=== PATIENT | male | born 1945 | race Caucasian/White ===

== ENCOUNTER 2021-06-10 05:57 | Observation (INO) | payer OTHER ==
--- NOTE | 2021-06-10 06:07 | EDM.PDOC ---
ED HPI GENERAL MEDICAL PROBLEM - General Chief Complaint: Lower Extremity Injury/Pain Stated Complaint: L hip pain Time Seen by Provider: 06/10/21 06:06 Source of Information: Reports: Patient History Limitations: Reports: No Limitations - History of Present Illness INITIAL COMMENTS - FREE TEXT/NARRATIVE: Patient comes the emergency department today by ambulance from the basic care center at the [facility] with concerns of a fall and left hip pain. This patient has a history of alcohol dependence abdominal aortic aneurysm without rupture a simple control hypertension hyperlipidemia hypothyroidism generalized anxiety disorder recurrent major depressive disorder. Last night approximately 10:00 the patient felt lightheaded and fell to the ground. He did not hit his head. He had no loss of consciousness. He has no head neck or back pain. He had no chest pain no shortness of breath or difficulty breathing. No generalized weakness. No palpitations. Or syncope. He just felt lightheaded and fell to the ground landing on his left hip. He relates that he laid on the ground most of the night as he was unable to get up due to the severe pain in his left hip. He has had no recent fever or chills. Nausea or vomiting no. No hematuria dysuria urinary frequency. No black or tarry stools. - Related Data Allergies Allergy/AdvReac Type Severity Reaction Status Date / Time No Known Allergies Allergy Verified 06/10/21 06:01 Home Meds: Home Meds Acetaminophen [Tylenol Extra Strength] 500 mg PO ASDIRECTED 06/10/21 [History] Aspirin [Aspirin EC] 81 mg PO DAILY 06/10/21 [History] Ibuprofen 200 mg PO ASDIRECTED 06/10/21 [History] Levothyroxine [Synthroid] 50 mcg PO ACBREAKFAST 06/10/21 [History] Metoprolol Succinate [Toprol XL] 25 mg PO DAILY 06/10/21 [History] busPIRone [Buspar] 20 mg PO DAILY 06/10/21 [History] Review of Systems - Review of Systems Review Of Systems: Comprehensive ROS is negative, except as noted in HPI. ED EXAM, GENERAL - Physical Exam Exam: See Below Exam Limited By: No Limitations General Appearance: Alert, WD/WN, Mild Distress, Thin, Cachetic Eye Exam: Bilateral Eye: EOMI, PERRL Ears: Normal External Exam. No: Normal Canal (Bilateral canals occluded with cerumen) Nose: Normal Inspection Throat/Mouth: No: Normal Inspection ([place] is exquisitely dry.) Head: Atraumatic, Normocephalic Neck: Normal Inspection, Supple, Non-Tender. No: Tender Lateral, Tender Midline Respiratory/Chest: No Respiratory Distress, No Accessory Muscle Use, Chest Non- Tender, Wheezing (His lung sounds are otherwise clear other than a faint expiratory wheezing on the right.) Cardiovascular: Normal Peripheral Pulses, Irregularly Irregular Peripheral Pulses: 2+: Radial (L), Radial (R), Posterior Tibial (L), Posterior Tibial (R), Dorsalis Pedis (L), Dorsalis Pedis (R) GI/Abdominal: Normal Bowel Sounds, Other (The patient does have a noted bladder fullness and tenderness concerning for urinary retention. We will bladder scan.) (Male) Exam: Deferred Rectal (Males) Exam: Deferred Back Exam: Normal Inspection, Full Range of Motion. No: Paraspinal Tenderness, Vertebral Tenderness Extremities: No: Normal Inspection (He has tenderness to the left greater trochanter. There is no overt bony deformity. His left lower extremity is not shortened or externally rotated. CMS is intact appropriately to the left lower extremity. Right lower extremity is unremarkable. Pelvis is stable.) Neurological: Alert, Oriented, Normal Cognition, No Motor/Sensory Deficits Psychiatric: Normal Affect, Normal Mood Skin Exam: Warm, Dry, Intact, Normal Color, No Rash Lymphatic: No Adenopathy Course - Vital Signs Last Recorded V/S: Last Vital Signs Temp 97.3 F 06/10/21 06:03 Pulse 69 06/10/21 08:30 Resp 16 06/10/21 08:30 BP 136/78 06/10/21 08:30 Pulse Ox 94 L 06/10/21 08:30 - Orders/Labs/Meds Orders: Active Orders 24 hr Category Date Time Status Hadley Catheter Insertion [Insert Urinary Catheter] [OM. Care 06/10/21 09:15 Ordered PC] Q24H Peripheral IV Care [RC] . DIRECTED Care 06/10/21 06:06 Active Urinary Catheter Assessment [RC] ASDIRECTED Care 06/10/21 09:05 Active Chest 1V Frontal [CR] Stat Exams 06/10/21 06:05 Taken Head wo Cont [CT] Stat Exams 06/10/21 06:05 Taken Hip Min 2V or 3V w Pelvis Lt [CR] Stat Exams 06/10/21 06:06 Taken PROCALCITONIN [REF] Stat Lab 06/10/21 06:22 Received Sodium Chloride 0.9% [Saline Flush] Med 06/10/21 06:05 Active 10 ml FLUSH ASDIRECTED PRN Peripheral IV Insertion Adult [OM.PC] Stat Oth 06/10/21 06:05 Ordered Medication Orders Sodium Chloride (Sodium Chloride 0.9% 10 Ml Syringe) 10 ml FLUSH ASDIRECTED PRN PRN Reason: Keep Vein Open Last Admin: 06/10/21 07:55 Dose: 10 ml Documented by: MYNOR Labs: Laboratory Tests 06/10/21 06/10/21 06/10/21 Range/Units 06:22 06:22 06:22 WBC 12.8 H (4.0-10.2) K/uL RBC 4.19 L (4.33-5.41) M/uL Hgb 13.2 (13.1-16.8) g/dL Hct 40.4 (39.0-49.0) % MCV 96.4 (84.0-98.0) fL MCH 31.5 (28.2-33.3) pg MCHC 32.7 (31.7-36.0) g/dL RDW 13.5 (11.2-14.1) % Plt Count 224 (150-350) K/uL Neut % (Auto) 88.0 H (45.0-80.0) % Lymph % (Auto) 4.1 L (10.0-50.0) % [place] % (Auto) 7.7 (2.0-14.0) % Eos % (Auto) 0.1 (0.0-5.0) % Baso % (Auto) 0.1 (0.0-2.0) % Neut # (Auto) 11.30 H (1.40-7.00) K/uL Lymph # (Auto) 0.52 (0.50-3.50) K/uL [place] # (Auto) 0.99 (0.00-1.00) K/uL Eos # (Auto) 0.01 (0.00-0.50) K/uL Baso # (Auto) 0.01 (0.00-0.20) K/uL PT 10.2 (9.5-12.0) SEC INR 1.0 APTT 27.8 (24.5-32.8) SEC Sodium 142 (136-145) mmol/L Potassium 4.5 (3.5-5.1) mmol/L Chloride 106 (98-107) mmol/L Carbon Dioxide 26.1 (21.0-32.0) mmol/L Anion Gap 9.9 (7-15) meq/L BUN 27 H (7-18) mg/dL Creatinine 1.32 H (0.51-1.17) mg/dL Est Cr Clr Drug Dosing TNP Estimated GFR (MDRD) 53 mL/min Glucose 168 H (70-99) mg/dL Lactic Acid (0.4-2.0) mmol/L Calcium 9.3 (8.5-10.1) mg/dL Total Bilirubin 0.4 (0.2-1.0) mg/dL AST 23 (15-37) U/L ALT 25 (12-78) U/L Alkaline Phosphatase 84 (46-116) IU/L Creatine Kinase 498 H (26-308) U/L Troponin I High Sens 17 (<=76) ng/L C-Reactive Protein 0.6 (<=0.9) mg/dL Total Protein 6.8 (6.4-8.2) g/dL Albumin 3.9 (3.4-5.0) g/dL Specimen Type Urine Color Urine Appearance Urine pH (5.0-9.0) Ur Specific [place] (1.005-1.030) Urine Protein (NEGATIVE) mg/dL Urine Glucose (UA) (NEGATIVE) mg/dL Urine Ketones (NEGATIVE) mg/dL Urine Occult Blood (NEGATIVE) Urine Nitrite (NEGATIVE) Urine Bilirubin (NEGATIVE) Urine Urobilinogen (0.2-1.0) E.U./dL Ur Leukocyte Esterase (NEGATIVE) Urine RBC /HPF Urine WBC /HPF Ur Epithelial Cells /LPF 06/10/21 06/10/21 Range/Units 06:22 09:35 WBC (4.0-10.2) K/uL RBC (4.33-5.41) M/uL Hgb (13.1-16.8) g/dL Hct (39.0-49.0) % MCV (84.0-98.0) fL MCH (28.2-33.3) pg MCHC (31.7-36.0) g/dL RDW (11.2-14.1) % Plt Count (150-350) K/uL Neut % (Auto) (45.0-80.0) % Lymph % (Auto) (10.0-50.0) % [place] % (Auto) (2.0-14.0) % Eos % (Auto) (0.0-5.0) % Baso % (Auto) (0.0-2.0) % Neut # (Auto) (1.40-7.00) K/uL Lymph # (Auto) (0.50-3.50) K/uL [place] # (Auto) (0.00-1.00) K/uL Eos # (Auto) (0.00-0.50) K/uL Baso # (Auto) (0.00-0.20) K/uL PT (9.5-12.0) SEC INR APTT (24.5-32.8) SEC Sodium (136-145) mmol/L Potassium (3.5-5.1) mmol/L Chloride (98-107) mmol/L Carbon Dioxide (21.0-32.0) mmol/L Anion Gap (7-15) meq/L BUN (7-18) mg/dL Creatinine (0.51-1.17) mg/dL Est Cr Clr Drug Dosing Estimated GFR (MDRD) mL/min Glucose (70-99) mg/dL Lactic Acid 1.5 (0.4-2.0) mmol/L Calcium (8.5-10.1) mg/dL Total Bilirubin (0.2-1.0) mg/dL AST (15-37) U/L ALT (12-78) U/L Alkaline Phosphatase (46-116) IU/L Creatine Kinase (26-308) U/L Troponin I High Sens (<=76) ng/L C-Reactive Protein (<=0.9) mg/dL Total Protein (6.4-8.2) g/dL Albumin (3.4-5.0) g/dL Specimen Type Urinvoid Urine Color Yellow Urine Appearance Clear Urine pH 7.0 (5.0-9.0) Ur Specific [place] 1.020 (1.005-1.030) Urine Protein Negative (NEGATIVE) mg/dL Urine Glucose (UA) Negative (NEGATIVE) mg/dL Urine Ketones Negative (NEGATIVE) mg/dL Urine Occult Blood Trace-intact H (NEGATIVE) Urine Nitrite Negative (NEGATIVE) Urine Bilirubin Negative (NEGATIVE) Urine Urobilinogen 0.2 (0.2-1.0) E.U./dL Ur Leukocyte Esterase Negative (NEGATIVE) Urine RBC 0-5 /HPF Urine WBC 0-5 /HPF Ur Epithelial Cells Occasional /LPF Meds: Medications Generic Name Dose Route Start Last Admin Trade Name Freq PRN Reason Stop Dose Admin Sodium Chloride 10 ml 06/10/21 06:05 06/10/21 07:55 Sodium Chloride 0.9% 10 Ml Syringe FLUSH 10 ml ASDIRECTED PRN Administration Keep Vein Open Discontinued Medications Generic Name Dose Route Start Last Admin Trade Name Freq PRN Reason Stop Dose Admin Hydromorphone HCl 0.5 mg 06/10/21 06:40 06/10/21 07:10 Hydromorphone 0.5 Mg/0.5 Ml Syringe IVPUSH 06/10/21 06:41 0.5 mg ONETIME ONE Administration Hydromorphone HCl 0.5 mg 06/10/21 07:39 06/10/21 07:54 Hydromorphone 0.5 Mg/0.5 Ml Syringe IV 06/10/21 07:40 0.5 mg ONETIME ONE Administration Lidocaine HCl 11 ml 06/10/21 09:09 06/10/21 09:24 Lidocaine 2% Hcl 11 Ml Jelly Filled Syringe TOP 06/10/21 09:10 11 ml ONETIME ONE Administration Ondansetron HCl 4 mg 06/10/21 06:40 06/10/21 07:10 Ondansetron 4 Mg/2 Ml Sdv IV 06/10/21 06:41 4 mg ONETIME ONE Administration - Radiology Interpretation Free Text/Narrative:: X-ray of the left hip initially reviewed extemporaneously by myself. I do not identify any pelvis fracture. He has a left femoral neck impacted nondisplaced fracture. Radiological review to follow. - Re-Assessments/Exams Free Text/Narrative Re-Assessment/Exam: 06/10/21 07:27 IV was established labs are drawn. Dilaudid for pain Zofran for prophylactic nausea. EKG shows atrial fibrillation which appears to be a new onset for him. I do not see any documentation of this in his chart previously. He is in a controlled rate at 74. Question marked ST abnormality possible inferior subendocardial injury. There is no EKG in our system and I do not identify any EKGs in the [facility] system which is his primary care. Patient had greater than 1000 and his bladder by bladder ultrasound. Hadley ca theter was placed. Approximately 2 L was drained. Urinalysis pending. He has no history of urinary retention. He clearly has a femoral necks impacted fracture. He has a new onset atrial fibrillation. With a controlled rate. Unknown time of initiation. He will need anticoagulation we will place him on Lovenox as he will have surgery in the near future. Laboratory evaluation with a mild elevation of his creatinine of 1.32 with a BUN of 27 which could be related to his outlet obstruction. This will most likely improve following drainage of his bladder. His CPK is mildly elevated at 498 which is good as he laid on the floor most of the night. His urinalysis is unremarkable other than a trace amount of blood. Which is most likely due to his small elevation of his CPK. We are unable to find a hospital bed for him to be transferred to at this time for his hip to be repaired. We will place him in observation until we can find placement. Comfortable with this plan and his questions were answered. Departure - Departure Time of Disposition: 10:01 Disposition: Refer to Observation Clinical Impression: Fracture of neck of femur, hip, New onset a-fib, Acute urinary retention, Acute kidney injury - Discharge Information Sepsis Event Note (ED) - Focused Exam Vital Signs: Vital Signs Temp Pulse Resp BP Pulse Ox 06/10/21 08:30 69 16 136/78 94 L 06/10/21 07:59 69 15 134/77 92 L 06/10/21 06:03 97.3 F 75 20 169/85 H 97 - Problem List & Annotations (1) Tobacco use disorder SNOMED Code(s): 946741798 Code(s): F17.200 - NICOTINE DEPENDENCE, UNSPECIFIED, UNCOMPLICATED Status: Acute Current Visit: Yes (2) Abdominal aortic aneurysm SNOMED Code(s): 909567916 Code(s): I71.4 - ABDOMINAL AORTIC ANEURYSM, WITHOUT RUPTURE Status: Acute Current Visit: Yes (3) Hypothyroidism SNOMED Code(s): 52225880 Code(s): E03.9 - HYPOTHYROIDISM, UNSPECIFIED Status: Acute Current Visit: Yes (4) Generalized anxiety disorder SNOMED Code(s): 61601781 Code(s): F41.1 - GENERALIZED ANXIETY DISORDER Status: Acute Current Visit: Yes (5) Recurrent major depressive disorder SNOMED Code(s): 50828333 Code(s): F33.9 - MAJOR DEPRESSIVE DISORDER, RECURRENT, UNSPECIFIED Status: Acute Current Visit: Yes (6) Acute kidney injury SNOMED Code(s): 40812812, 51656687 Code(s): N17.9 - ACUTE KIDNEY FAILURE, UNSPECIFIED Status: Acute Current Visit: Yes (7) Acute urinary retention SNOMED Code(s): 993390356 Code(s): R33.8 - OTHER RETENTION OF URINE Status: Acute Current Visit: Yes (8) Fracture of neck of femur, hip SNOMED Code(s): 1306444 Code(s): S72.009A - FRACTURE OF UNSP PART OF NECK OF UNSP FEMUR, INIT Status: Acute Current Visit: Yes (9) New onset a-fib SNOMED Code(s): 48663959 Code(s): I48.91 - UNSPECIFIED ATRIAL FIBRILLATION Status: Acute Current Visit: Yes - Problem List Review Problem List Initiated/Reviewed/Updated: Yes - My Orders Last 24 Hours: My Active Orders 06/10/21 06:05 Chest 1V Frontal [CR] Stat Head wo Cont [CT] Stat Sodium Chloride 0.9% [Saline Flush] 10 ml FLUSH ASDIRECTED PRN Peripheral IV Insertion Adult [OM.PC] Stat 06/10/21 06:06 Peripheral IV Care [RC] . DIRECTED Hip Min 2V or 3V w Pelvis Lt [CR] Stat 06/10/21 06:22 PROCALCITONIN [REF] Stat 06/10/21 09:05 Urinary Catheter Assessment [RC] ASDIRECTED 06/10/21 09:15 Hadley Catheter Insertion [Insert Urinary Catheter] [OM.PC] Q24H - Assessment/Plan Last 24 Hours: My Active Orders 06/10/21 06:05 Chest 1V Frontal [CR] Stat Head wo Cont [CT] Stat Sodium Chloride 0.9% [Saline Flush] 10 ml FLUSH ASDIRECTED PRN Peripheral IV Insertion Adult [OM.PC] Stat 06/10/21 06:06 Peripheral IV Care [RC] . DIRECTED Hip Min 2V or 3V w Pelvis Lt [CR] Stat 06/10/21 06:22 PROCALCITONIN [REF] Stat 06/10/21 09:05 Urinary Catheter Assessment [RC] ASDIRECTED 06/10/21 09:15 Hadley Catheter Insertion [Insert Urinary Catheter] [OM.PC] Q24H Assessment:: Assessment/plan. Left femoral neck impacted fracture. Acute. Status post fall at home. Due to lightheadedness most likely due to #2. Bedrest. Waiting on bed placement Pain control. Assistance with ADLs. New onset atrial fibrillation with controlled ventricular rate. Unknown time of onset. No need for beta-blockers at this time. Telemetry. We will use Lovenox twice daily for anticoagulation as he is going to most likely need surgery in the near future. Acute kidney injury. Most likely due to poor oral intake over overnight from laying on the ground. Baseline creatinine 1.07, creatinine today 1.32. Gentle hydration with IV fluids. This could also be an aspect of outlet obstruction. See #3. Repeat labs in the morning. Acute urinary retention. New onset. Greater than 2 L in the emergency department after Hadley catheter placed. No history of BPH. This could be an aspect of his acute kidney injury due to outlet obstruction. Chronic diagnosis Hypothyroidism Continue levothyroxine. Major depressive disorder generalized anxiety disorder. Continue home medication clonazepam duloxetine and BuSpar. Abdominal aortic aneurysm. Without rupture. Monitor blood pressure closely. Nicotine dependence. Habitrol patch. VTE: Lovenox 60mg Subcut bid for prophylaxis A Fib. TEDs. Sepsis: No signs of infection at this time. Continue to monitor. Code Status. Full Code. We are unable to transfer him at this time due to bed status. [facility]. [facility] has [facility] contacted to help look for a bed. I am unsure of the time that we will be able to get this patient to a tertiary care center for his hip fracture with his co-morbidities. I do not believe that he is a candidate for [facility] to repair his hip with his co-morbidities. I do not want to start Coumadin or DOACs as the patient will need surgery in the near future and Lovenox would be more appropriate. The patient care has been given to Dr. Singh for observation and disposition.
[2021-06-10] MEDS ORDERED: HYDROmorphone 0.5 MG/0.5 ML Syringe IVPUSH ONE (06:40)
[2021-06-10] MEDS ORDERED: Ondansetron 4 MG/2 ML SDV IV ONE (06:40)
[2021-06-10 07:29] LABS: PTT,PARTIAL THROMBOPLSTIN TIME 27.8 SEC (24.5-32.8)
--- NOTE | 2021-06-10 07:35 | PCM.EKG ---
#1 Interpretation EKG Date: 06/10/21 Time: 07:04 Rhythm: A-Fib Rate (Beats/Min): 74 [place]: Normal P-Wave: Absent QRS: Normal ST-T: Depressed (? depression, per EKG marked ST abnormality, possible inferior endocardial injury,.) QT: Normal Comparison: NA - No Prior EKG
[2021-06-10] MEDS ORDERED: HYDROmorphone 0.5 MG/0.5 ML Syringe IV ONE (07:39)
[2021-06-10] MEDS: Sodium Chloride 0.9% 10 ML Syringe FLUSH PRN ×3 (07:55→13:38)
[2021-06-10 08:01] LABS: ANION GAP 9.9 meq/L (7-15); CHLORIDE,CL 106 mmol/L (98-107); SODIUM,NA 142 mmol/L (136-145)
[2021-06-10] MEDS ORDERED: Lidocaine 2% HCl 11 ML Jelly Filled Syringe TOP ONE (09:09)
[2021-06-10] MEDS: HYDROmorphone 0.5 MG/0.5 ML Syringe IVPUSH PRN ×4 (11:50→19:57)
[2021-06-10] MEDS: Enoxaparin 60 MG/0.6 ML Syringe SUBCUT SCH (11:50)
[2021-06-10] MEDS: Dextrose 5%-0.9% NaCl 1,000 ML IV SCH (13:38)
[2021-06-10] MEDS: Ondansetron 4 MG/2 ML SDV IVPUSH PRN (20:00)
[2021-06-10] MEDS: traMADol 50 MG Tab PO SCH (22:15)
[2021-06-11] MEDS: HYDROmorphone 0.5 MG/0.5 ML Syringe IVPUSH PRN ×7 (00:14→13:30)
[2021-06-11] MEDS: Dextrose 5%-0.9% NaCl 1,000 ML IV SCH ×2 (01:29→13:34)
[2021-06-11] MEDS: traMADol 50 MG Tab PO SCH ×3 (04:23→18:26)
[2021-06-11] MEDS ORDERED: Levothyroxine 50 MCG Tab PO SCH (07:30)
[2021-06-11] MEDS: Ondansetron 4 MG/2 ML SDV IVPUSH PRN (07:36)
[2021-06-11] MEDS: Sodium Chloride 0.9% 10 ML Syringe FLUSH PRN ×4 (07:41→13:30)
[2021-06-11] MEDS ORDERED: busPIRone 15 MG Tab PO SCH (08:00)
[2021-06-11] MEDS ORDERED: Metoprolol Succinate 25 MG Tab.ER PO SCH (08:00)
[2021-06-11 08:30] LABS: ANION GAP 6.1 meq/L (7-15); CHLORIDE,CL 107 mmol/L (98-107); SODIUM,NA 141 mmol/L (136-145)
[2021-06-11] MEDS: Enoxaparin 60 MG/0.6 ML Syringe SUBCUT SCH (10:11)
--- NOTE | 2021-06-11 14:07 | PCM.DCSUM1 ---
Discharge Summary - Hospital Course Brief History: Patient admitted observation due to acute left femoral neck fracture while waiting for a bed to open up at higher level of care that provides surgical Ortho coverage. Incidental new onset Afib noted. Diagnosis: Stroke: No - Discharge Data Discharge Date: 06/11/21 Discharge Disposition: DC/Tfer to Acute Hospital 02 Condition: Good - Referral to Home Health Primary Care Physician: JUAN JOSE Arrieta - Discharge Diagnosis/Problem(s) (1) Fracture of neck of femur, hip SNOMED Code(s): 7489615 ICD Code: S72.009A - FRACTURE OF UNSP PART OF NECK OF UNSP FEMUR, INIT Status: Acute Priority: High Current Visit: Yes Problem Details: Acute left sided fracture secondary to fall. Admitted observation for pain control overnight while waiting for bed placement in [place] for Ortho eval/surgical repair. (2) New onset a-fib SNOMED Code(s): 15776893 ICD Code: I48.91 - UNSPECIFIED ATRIAL FIBRILLATION Status: Acute Priority: Medium Current Visit: Yes Problem Details: No history of previous Afib. Will need echo which can be performed at [facility]. Not started on routine anticoaguation due to pending hip fracture surgery. Further therapy to be determined at [facility]. Brief run of V-tach noted on cafeteria monitor/asymptomatic. No further episodes noted. (3) Abdominal aortic aneurysm SNOMED Code(s): 592283550 ICD Code: I71.4 - ABDOMINAL AORTIC ANEURYSM, WITHOUT RUPTURE Status: Chronic Priority: Low Current Visit: No Problem Details: Chronic. No acute changes/new pain complaints. Qualifiers: Presence of rupture: without rupture Qualified Code(s): I71.4 - Abdominal aortic aneurysm, without rupture (4) Acute urinary retention SNOMED Code(s): 901325218 ICD Code: R33.8 - OTHER RETENTION OF URINE Status: Acute Priority: High Current Visit: Yes Problem Details: Over 2000 ml obtained from bladder after garcia placement. No history of previous similar problem. UA clear. (5) Generalized anxiety disorder SNOMED Code(s): 74087102 ICD Code: F41.1 - GENERALIZED ANXIETY DISORDER Status: Chronic Priority: Low Current Visit: No Problem Details: stable per history. Continue home meds. (6) Hyperlipidemia SNOMED Code(s): 36786923 ICD Code: E78.5 - HYPERLIPIDEMIA, UNSPECIFIED Status: Acute Priority: Low Current Visit: No Problem Details: Currently not being treated by medication Qualifiers: Hyperlipidemia type: unspecified Qualified Code(s): E78.5 - Hyperlipidemia, unspecified (7) Hypothyroidism SNOMED Code(s): 52747928 ICD Code: E03.9 - HYPOTHYROIDISM, UNSPECIFIED Status: Acute Priority: Low Current Visit: No Problem Details: Continue home medication Qualifiers: Hypothyroidism type: unspecified Qualified Code(s): E03.9 - Hypothyroidism, unspecified - Patient Summary/Data Hospital Course: Unremarkable overnight stay. Dilaudid IV and Tramadol PO for pain. Garcia placed as noted above. Vital signs stable. Patient has not eaten today/has remained NPO other than sips water. Brief isolated 5-10 sec run of VTach noted on monitor today. Accepted for transfer by [facility] today by /hospitalist. Received bed confirmation at 1345. - Discharge Plan Home Medications: Home Meds Acetaminophen [Tylenol Extra Strength] 500 mg PO ASDIRECTED 06/10/21 [History] Aspirin [Aspirin EC] 81 mg PO DAILY 06/10/21 [History] Ibuprofen 200 mg PO ASDIRECTED 06/10/21 [History] Levothyroxine [Synthroid] 50 mcg PO ACBREAKFAST 06/10/21 [History] Metoprolol Succinate [Toprol XL] 25 mg PO DAILY 06/10/21 [History] busPIRone [Buspar] 20 mg PO DAILY 06/10/21 [History] Forms: ED Department Discharge Referrals: Kate Lopez PA [Primary Care Provider] - - Discharge Summary/Plan Comment DC Time >30 min.: No Total # of Minutes for Discharge Time: 30 - General Info Date of Service: 06/11/21 Admission Dx/Problem (Free Text: left hip fracture Subjective Update: patient complains of left hip pain, no acute changes overnight. Functional Status: Reports: Pain Controlled (improves with dilaudid/tramadol but never completely goes away) - Review of Systems General: Reports: Appetite (poor). Denies: Fever, Weakness, Chills, Night Sweats HEENT: Reports: Other (no acute changes) Pulmonary: Denies: Shortness of Breath, Pleuritic Chest Pain, Cough, Sputum, Hemoptysis, Wheezing Cardiovascular: Denies: Chest Pain Gastrointestinal: Reports: Decreased Appetite. Denies: Abdominal Pain, Constipation, Diarrhea, Melena, Nausea, Vomiting Genitourinary: Reports: Retention. Denies: Dysuria, Frequency, Burning, Flank Pain Musculoskeletal: Reports: Other (acute left hip pain) Skin: Reports: Other (no acute changes) Neurological: Reports: Other (no acute changes) - Patient Data Vitals - Most Recent: Last Vital Signs Temp 37.2 C 06/11/21 11:01 Pulse 95 06/11/21 11:01 Resp 16 06/11/21 11:01 BP 98/63 06/11/21 11:01 Pulse Ox 91 L 06/11/21 11:01 Weight - Most Recent: 65.771 kg I&O - Last 24 hours: Intake & Output 06/10/21 06/11/21 06/11/21 22:59 06:59 14:59 Intake Total 456 Output Total 575 Balance -119 Lab Results - Last 24 hrs: Laboratory Results - last 24 hr 06/10/21 06/11/21 06/11/21 Range/Units 06:22 07:35 07:40 WBC 8.5 (4.0-10.2) K/uL RBC 3.92 L (4.33-5.41) M/uL Hgb 12.3 L (13.1-16.8) g/dL Hct 39.0 (39.0-49.0) % MCV 99.5 H D (84.0-98.0) fL MCH 31.4 (28.2-33.3) pg MCHC 31.5 L (31.7-36.0) g/dL RDW 13.8 (11.2-14.1) % Plt Count 160 (150-350) K/uL Neut % (Auto) 79.9 (45.0-80.0) % Lymph % (Auto) 9.6 L (10.0-50.0) % [place] % (Auto) 8.9 (2.0-14.0) % Eos % (Auto) 1.5 (0.0-5.0) % Baso % (Auto) 0.1 (0.0-2.0) % Neut # (Auto) 6.82 (1.40-7.00) K/uL Lymph # (Auto) 0.82 (0.50-3.50) K/uL [place] # (Auto) 0.76 (0.00-1.00) K/uL Eos # (Auto) 0.13 (0.00-0.50) K/uL Baso # (Auto) 0.01 (0.00-0.20) K/uL Sodium 141 (136-145) mmol/L Potassium 3.8 (3.5-5.1) mmol/L Chloride 107 (98-107) mmol/L Carbon Dioxide 27.9 (21.0-32.0) mmol/L Anion Gap 6.1 L (7-15) meq/L BUN 21 H (7-18) mg/dL Creatinine 1.00 (0.51-1.17) mg/dL Est Cr Clr Drug Dosing 59.38 mL/min Estimated GFR (MDRD) > 60 mL/min Glucose 111 H (70-99) mg/dL Calcium 8.1 L (8.5-10.1) mg/dL Total Bilirubin 0.3 (0.2-1.0) mg/dL AST 23 (15-37) U/L ALT 20 (12-78) U/L Alkaline Phosphatase 67 (46-116) IU/L Total Protein 5.5 L (6.4-8.2) g/dL Albumin 2.8 L (3.4-5.0) g/dL Procalcitonin 0.15 H ng/mL SARS-CoV-2 Ag (Rapid) (NEGATIVE) 06/11/21 Range/Units 10:02 WBC (4.0-10.2) K/uL RBC (4.33-5.41) M/uL Hgb (13.1-16.8) g/dL Hct (39.0-49.0) % MCV (84.0-98.0) fL MCH (28.2-33.3) pg MCHC (31.7-36.0) g/dL RDW (11.2-14.1) % Plt Count (150-350) K/uL Neut % (Auto) (45.0-80.0) % Lymph % (Auto) (10.0-50.0) % [place] % (Auto) (2.0-14.0) % Eos % (Auto) (0.0-5.0) % Baso % (Auto) (0.0-2.0) % Neut # (Auto) (1.40-7.00) K/uL Lymph # (Auto) (0.50-3.50) K/uL [place] # (Auto) (0.00-1.00) K/uL Eos # (Auto) (0.00-0.50) K/uL Baso # (Auto) (0.00-0.20) K/uL Sodium (136-145) mmol/L Potassium (3.5-5.1) mmol/L Chloride (98-107) mmol/L Carbon Dioxide (21.0-32.0) mmol/L Anion Gap (7-15) meq/L BUN (7-18) mg/dL Creatinine (0.51-1.17) mg/dL Est Cr Clr Drug Dosing mL/min Estimated GFR (MDRD) mL/min Glucose (70-99) mg/dL Calcium (8.5-10.1) mg/dL Total Bilirubin (0.2-1.0) mg/dL AST (15-37) U/L ALT (12-78) U/L Alkaline Phosphatase (46-116) IU/L Total Protein (6.4-8.2) g/dL Albumin (3.4-5.0) g/dL Procalcitonin ng/mL SARS-CoV-2 Ag (Rapid) Negative (NEGATIVE) Med Orders - Current: Current Medications Buspirone HCl (Buspirone 15 Mg Tab) 20 mg PO DAILY [facility] Last Admin: 06/11/21 07:42 Dose: 20 mg Documented by: Enoxaparin Sodium (Enoxaparin 60 Mg/0.6 Ml Syringe) 60 mg SUBCUT DAILY [facility] Last Admin: 06/11/21 10:11 Dose: Not Given Documented by: Hydromorphone HCl (Hydromorphone 0.5 Mg/0.5 Ml Syringe) 0.5 mg IVPUSH Q1H PRN PRN Reason: Pain Last Admin: 06/11/21 13:30 Dose: 0.5 mg Documented by: Dextrose/Sodium Chloride (Dextrose 5%-Normal Saline) 1,000 mls @ 100 mls/hr IV ASDIRECTED [facility] Last Admin: 06/11/21 13:34 Dose: 100 mls/hr Documented by: Influenza Virus Vaccine (Pharmacy To Dose - Influenza Vaccine) 1 each IM ONETIME ONE Stop: 06/10/21 14:18 Levothyroxine Sodium (Levothyroxine 50 Mcg Tab) 50 mcg PO ACBREAKFAST [facility] Last Admin: 06/11/21 07:41 Dose: 50 mcg Documented by: Metoprolol Succinate (Metoprolol Succinate 25 Mg Tab.Er) 25 mg PO DAILY [facility] Last Admin: 06/11/21 07:42 Dose: 25 mg Documented by: Ondansetron HCl (Ondansetron 4 Mg/2 Ml Sdv) 4 mg IVPUSH Q6H PRN PRN Reason: Nausea/Vomiting Last Admin: 06/11/21 07:36 Dose: 4 mg Documented by: Sodium Chloride (Sodium Chloride 0.9% 10 Ml Syringe) 10 ml FLUSH ASDIRECTED PRN PRN Reason: Keep Vein Open Last Admin: 06/11/21 13:30 Dose: 10 ml Documented by: Tramadol HCl (Tramadol 50 Mg Tab) 50 mg PO Q6H [facility] Last Admin: 06/11/21 10:12 Dose: Not Given Documented by: Discontinued Medications Hydromorphone HCl (Hydromorphone 0.5 Mg/0.5 Ml Syringe) 0.5 mg IVPUSH ONETIME ONE Stop: 06/10/21 06:41 Last Admin: 06/10/21 07:10 Dose: 0.5 mg Documented by: Hydromorphone HCl (Hydromorphone 0.5 Mg/0.5 Ml Syringe) 0.5 mg IV ONETIME ONE Stop: 06/10/21 07:40 Last Admin: 06/10/21 07:54 Dose: 0.5 mg Documented by: Lidocaine HCl (Lidocaine 2% Hcl 11 Ml Jelly Filled Syringe) 11 ml TOP ONETIME ONE Stop: 06/10/21 09:10 Last Admin: 06/10/21 09:24 Dose: 11 ml Documented by: Ondansetron HCl (Ondansetron 4 Mg/2 Ml Sdv) 4 mg IV ONETIME ONE Stop: 06/10/21 06:41 Last Admin: 06/10/21 07:10 Dose: 4 mg Documented by: - Exam Quality Assessment: Reports: Supplemental Oxygen General: Reports: Alert HEENT: Reports: Pupils Equal, Pupils Reactive, EOMI, Mucous Membr. Moist/[place] Neck: Reports: Supple Lungs: Reports: Normal Respiratory Effort, Decreased Breath Sounds (throughout), Rhonchi (mild, right upper lung). Denies: Rales, Stridor, Wheezing Cardiovascular: Reports: Irregular Rhythm. Denies: Murmurs GI/Abdominal Exam: Soft, Non-Tender (Male) Exam: Deferred Rectal (Males) Exam: Deferred Back Exam: Denies: Muscle Spasm Extremities: Normal Capillary Refill, Other (right hip pain) Neurological: Reports: No New Focal Deficit Psy/Mental Status: Reports: Alert, Normal Affect, Normal Mood
== END 2021-06-11 14:22 ==
LOC: LL.ED 05:57 → LL.MS 09:44
PROVIDERS: ADMIT Emergency Medicine; ATTEND Emergency Medicine
DX: S72.002A Fracture of unspecified part of neck of left femur, initial encounter for closed fracture (principal); I10 Essential (primary) hypertension; E78.5 Hyperlipidemia, unspecified; E03.9 Hypothyroidism, unspecified; F41.1 Generalized anxiety disorder; I71.4 Abdominal aortic aneurysm, without rupture; F17.200 Nicotine dependence, unspecified, uncomplicated; N17.9 Acute kidney failure, unspecified; F33.9 Major depressive disorder, recurrent, unspecified; I48.91 Unspecified atrial fibrillation; R33.9 Retention of urine, unspecified; Z20.822 Contact with and (suspected) exposure to COVID-19; Z79.899 Other long term (current) drug therapy; Z79.82 Long term (current) use of aspirin; Z79.890 Hormone replacement therapy
CPT/HCPCS: 36415; 51702; 70450; 71045; 80053; 81001; 82550; 83605; 84145; 84484; 85025; 85610; 85730; 86140; 87426; 93005; 93010; 96372; 96374; 96375; 96376; 99217; 99220; 99285-25; A9270-GY; G0378; J1170; J1650; J2405; J7042

== ENCOUNTER 2021-08-16 13:56 | Emergency (ER) | payer MEDICARE, OTHER ==
[2021-08-16] MEDS ORDERED: Lidocaine 4% Top Soln 50 ML Bottle MUCMEM ONE (14:06)
[2021-08-16] MEDS ORDERED: Lidocaine 2% HCl 11 ML Jelly Filled Syringe TOP ONE (14:10)
--- NOTE | 2021-08-16 16:39 | EDM.PDOC ---
ED HPI GENERAL MEDICAL PROBLEM - General Chief Complaint: Genitourinary Problem Stated Complaint: unable to reinsert catheter Time Seen by Provider: 08/16/21 13:58 Source of Information: Reports: Patient, RN History Limitations: Reports: No Limitations - History of Present Illness INITIAL COMMENTS - FREE TEXT/NARRATIVE: Pt. presents to ER from [facility] with complaints that they are unable to pass a garcia catheter. He has problems with urinary retention, and they were unable to pass the new catheter today when they changed it. Staff at [facility] state that they had trouble removing the catheter as well, but were eventually able to remove it. They state that the patient had some bloody urine/clots present when the catheter was removed. Staff is concerned that his urine looks dark in color. Pt. denies any discomfort. No fever or chills. No nausea or vomiting. No abdominal discomfort. Onset: Today Onset Date: 08/16/21 left flank/lower back pain Pain Score (Numeric/FACES): 9 - Related Data Allergies Allergy/AdvReac Type Severity Reaction Status Date / Time No Known Allergies Allergy Verified 08/16/21 14:02 Home Meds: Home Meds Acetaminophen [Tylenol Extra Strength] 500 mg PO TID 06/10/21 [History] Levothyroxine [Synthroid] 50 mcg PO ACBREAKFAST 06/10/21 [History] busPIRone [Buspar] 20 mg PO TID 06/10/21 [History] Apixaban [Eliquis] 5 mg PO BID 08/16/21 [History] Calcium Carb/Magnesium Hydrox [Antacid Extra Strngth Tab Chew] 1 - 2 tab PO ASDIRECTED PRN 08/16/21 [History] Ferrous Sulfate 325 mg PO DAILY 08/16/21 [History] Folic Acid 1 mg PO DAILY 08/16/21 [History] Lidocaine 5% [Lidoderm 5%] 1 patch TOP DAILY 08/16/21 [History] Loperamide HCl [Imodium A-D] 2 - 4 mg PO ASDIRECTED PRN 08/16/21 [History] Metoprolol Succinate 50 mg PO DAILY 08/16/21 [History] Nicotine Polacrilex [Nicotine Lozenge] 2 mg BC ASDIRECTED PRN 08/16/21 [History] Omeprazole 20 mg PO DAILY 08/16/21 [History] Sennosides/Docusate Sodium [Senna-S 8.6-50 mg Tablet] 1 tab PO BID 08/16/21 [History] Sertraline [Zoloft] 50 mg PO DAILY 08/16/21 [History] Tamsulosin HCl 0.4 mg PO DAILY 08/16/21 [History] buPROPion HCL [Bupropion Xl] 300 mg PO DAILY 08/16/21 [History] clonazePAM [Clonazepam] 1 mg PO BID 08/16/21 [History] traMADol [Ultram] 50 mg PO ASDIRECTED PRN 08/16/21 [History] traMADol [Ultram] 50 mg PO TID 08/16/21 [History] Past Medical History HEENT History: Reports: Cataract, Impaired Vision Cardiovascular History: Reports: Afib, Aneurysm, High Cholesterol, Hypertension, Other (See Below) Other Cardiovascular History: new onset afib today 06/10/21, hx of abdominal aortic aneurysm without rupture Respiratory History: Reports: COPD Gastrointestinal History: Reports: Chronic Constipation, GERD Genitourinary History: Reports: BPH, Retention, Urinary, Other (See Below) Other Genitourinary History: hx of cyst on kidney Musculoskeletal History: Reports: Fracture, Other (See Below) Other Musculoskeletal History: fx left femur Psychiatric History: Reports: Addiction, Anxiety, Depression Endocrine/Metabolic History: Reports: Hypothyroidism Hematologic History: Reports: Anemia - Past Surgical History HEENT Surgical History: Reports: Oral Surgery Musculoskeletal Surgical History: Reports: Hip Replacement, Other (See Below) Other Musculoskeletal Surgeries/Procedures:: L STALIN Social & Family History - Caffeine Use Caffeine Use: Reports: Coffee ED ROS GENERAL - Review of Systems Review Of Systems: See Below Constitutional: Reports: No Symptoms HEENT: Reports: No Symptoms Respiratory: Reports: No Symptoms Cardiovascular: Reports: No Symptoms Endocrine: Reports: No Symptoms GI/Abdominal: Reports: No Symptoms : Reports: Hematuria, Urinary Retention, Other (see HPI) Musculoskeletal: Reports: No Symptoms Skin: Reports: No Symptoms Neurological: Reports: No Symptoms Psychiatric: Reports: No Symptoms Hematologic/Lymphatic: Reports: No Symptoms Immunologic: Reports: No Symptoms ED EXAM, GENERAL - Physical Exam Exam: See Below Exam Limited By: No Limitations General Appearance: Alert, WD/WN, No Apparent Distress GI/Abdominal: Soft, Non-Tender, No Distention, No Mass (Male) Exam: Normal Inspection, Circumcised, Other (Several small blood clots flushed from catheter after it was placed.) Rectal (Males) Exam: Deferred Course - Vital Signs Last Recorded V/S: Last Vital Signs Temp 36.9 C 08/16/21 13:58 Pulse 64 08/16/21 13:58 Resp 16 08/16/21 13:58 BP 135/88 08/16/21 13:58 Pulse Ox 96 08/16/21 13:58 - Orders/Labs/Meds Orders: Active Orders 24 hr Category Date Time Status CULTURE URINE [RM] Stat Lab 08/16/21 15:05 Received Labs: Laboratory Tests 08/16/21 Range/Units 15:05 Specimen Type Urincath Urine Color Brown Urine Appearance Turbid Urine pH 6.5 (5.0-9.0) Ur Specific [place] 1.020 (1.005-1.030) Urine Protein 100 H (NEGATIVE) mg/dL Urine Glucose (UA) Negative (NEGATIVE) mg/dL Urine Ketones Trace H (NEGATIVE) mg/dL Urine Occult Blood Large H (NEGATIVE) Urine Nitrite Negative (NEGATIVE) Urine Bilirubin Small H (NEGATIVE) Urine Urobilinogen 1.0 (0.2-1.0) E.U./dL Ur Leukocyte Esterase Trace H (NEGATIVE) Urine RBC >100 H /HPF Urine WBC 5-10 H /HPF Ur Epithelial Cells Rare /LPF Urine Bacteria Few (NONE TO FEW) /HPF Meds: Medications Discontinued Medications Generic Name Dose Route Start Last Admin Trade Name Freq PRN Reason Stop Dose Admin Lidocaine HCl 10 ml 08/16/21 14:06 08/16/21 14:15 Lidocaine 4% Top Soln 50 Ml Bottle MUCMEM 08/16/21 14:07 Not Given ONETIME ONE Lidocaine HCl 11 ml 08/16/21 14:10 08/16/21 14:14 Lidocaine 2% Hcl 11 Ml Jelly Filled Syringe TOP 08/16/21 14:11 11 ml ONETIME ONE Administration - Re-Assessments/Exams Free Text/Narrative Re-Assessment/Exam: Catheter was changed with minimal difficulty per nursing. Glydo lidocaine/[place] combination was used to anesthetize the urethra prior to placement of the catheter. Initially there was minimal urine return. Catheter was flushed with normal saline, and was flowing freely at time of discharge. UA was performed. He had only a trace of leukocyte esterase noted on his UA. He continued to have some small clots in his urine and urine appeared blood tinged. No juliette hematu clotilde noted. Departure - Departure Time of Disposition: 13:15 Disposition: DC/Tfer to [facility] 03 Clinical Impression: Urinary retention, Asymptomatic bacteriuria - Discharge Information Referrals: Kate Lopez PA [Primary Care Provider] - Forms: ED Department Discharge Additional Instructions: Follow-up in clinic as needed. There is a trace of leukocytes in his urine. We will await cultures to see if it needs to be treated. Sepsis Event Note (ED) - Focused Exam Vital Signs: Vital Signs Temp Pulse Resp BP Pulse Ox 08/16/21 13:58 36.9 C 64 16 135/88 96 - Problem List Review Problem List Initiated/Reviewed/Updated: Yes - My Orders Last 24 Hours: My Active Orders 08/16/21 15:05 CULTURE URINE [RM] Stat - Assessment/Plan Last 24 Hours: My Active Orders 08/16/21 15:05 CULTURE URINE [RM] Stat Plan: Pt. was discharged. He was not treated for a UTI as he was asymptomatic. Urine was cultured. Change garcia catheter as directed by PCP/urologist. Return to ER if he develops fever, chills, lightheadedness, weakness, nausea, vomiting, abdominal or back pain.
== END 2021-08-16 16:25 ==
LOC: LL.ED 13:56
DX: N40.1 Benign prostatic hyperplasia with lower urinary tract symptoms (principal); R33.8 Other retention of urine; R82.71 Bacteriuria; I48.91 Unspecified atrial fibrillation; I10 Essential (primary) hypertension; J44.9 Chronic obstructive pulmonary disease, unspecified; K21.9 Gastro-esophageal reflux disease without esophagitis; E03.9 Hypothyroidism, unspecified; D64.9 Anemia, unspecified; Z79.01 Long term (current) use of anticoagulants; Z79.899 Other long term (current) drug therapy
CPT/HCPCS: 51702; 81001; 87086; 87088; 87186; 99283; A9270; 99284

== ENCOUNTER 2021-09-13 22:53 | Emergency (ER) | payer OTHER ==
[2021-09-13] MEDS: Lidocaine 2% HCl 11 ML Jelly Filled Syringe ONE (23:00)
== END 2021-09-13 23:55 | disposition home or self-care (01) ==
LOC: LL.ED 22:53
DX: T83.83XA Hemorrhage due to genitourinary prosthetic devices, implants and grafts, initial encounter (principal); I48.91 Unspecified atrial fibrillation; I10 Essential (primary) hypertension; J44.9 Chronic obstructive pulmonary disease, unspecified; K21.9 Gastro-esophageal reflux disease without esophagitis; N40.1 Benign prostatic hyperplasia with lower urinary tract symptoms; R33.8 Other retention of urine; E03.9 Hypothyroidism, unspecified; D64.9 Anemia, unspecified; Z79.01 Long term (current) use of anticoagulants; Z79.899 Other long term (current) drug therapy
CPT/HCPCS: 51702; 81001; 81003; 87086; 87088; 87186; 99283; 99283-25; A9270-GY

== ENCOUNTER 2022-03-14 04:27 | Observation (INO) | payer OTHER ==
[2022-03-14] MEDS ORDERED: methylPREDNISolone Sodium Succinate 125 MG/2 ML SDV IVPUSH ONE (04:40)
[2022-03-14] MEDS ORDERED: Albuterol/Ipratropium 3.0-0.5 MG/3 ML Neb Soln NEB ONE ×2 (04:40→04:50)
[2022-03-14] MEDS ORDERED: Furosemide 40 MG/4 ML VIAL IVPUSH ONE (05:13)
[2022-03-14 05:19] LABS: ANION GAP 11.9 meq/L (7-15); CHLORIDE,CL 105 mmol/L (98-107); ESTIMATED GFR 60 mL/min (>=60); SODIUM,NA 142 mmol/L (136-145)
[2022-03-14 05:50] LABS: CORONAVIRUS COVID-19 NAA NEGATIVE (NEGATIVE); RESPIRATORY SYNCYTIAL VIR NAA NEGATIVE (NEGATIVE)
[2022-03-14 05:53] LABS: O2 DELIVERY DEVICE NASAL CANNULA; PCO2 ARTERIAL 36 mmHG (35-45)
[2022-03-14 05:54] LABS: BASE EXCESS ARTERIAL -1 mmol/L (-2-3); BICARBONATE,ARTERIAL 23.1 mmol/L (22-26); O2 SATURATION ARTERIAL 92 % (95-98); PO2 ARTERIAL 64 mmHG (80-105)
[2022-03-14] MEDS ORDERED: Iopamidol 755 Mg/ML 100 ML Bottle ONE (06:29)
[2022-03-14] MEDS ORDERED: Sodium Chloride 0.9% 500 ML IV SCH (06:30)
[2022-03-14] MEDS ORDERED: Bisacodyl 5 MG Tab PO PRN (08:22)
[2022-03-14] MEDS ORDERED: traMADol 50 MG Tab PO PRN (08:23)
[2022-03-14] MEDS ORDERED: Magnesium Hydroxide 400 MG/5 ML Susp 30 ML Cup PO PRN (08:23)
[2022-03-14] MEDS ORDERED: Metoprolol Succinate 25 MG Tab.ER PO SCH (08:30)
[2022-03-14] MEDS ORDERED: Sodium Chloride 0.9% 1,000 ML IV SCH (08:30)
[2022-03-14] MEDS ORDERED: Apixaban 5 MG Tab PO SCH ×2 (08:30→18:00)
[2022-03-14] MEDS ORDERED: cefTRIAXone 1 GM in Sodium Chloride 0.9% 100 ML IV SCH (09:00)
[2022-03-14] MEDS: Acetaminophen 500 MG Tab PO SCH ×2 (09:35→14:17)
[2022-03-14] MEDS ORDERED: Azithromycin 500 MG in Sodium Chloride 0.9% 250 ML IV SCH (10:00)
[2022-03-14] MEDS ORDERED: Albuterol/Ipratropium 3.0-0.5 MG/3 ML Neb Soln NEB SCH (14:00)
[2022-03-14] MEDS ORDERED: busPIRone 15 MG Tab PO SCH (14:00)
[2022-03-14] MEDS ORDERED: ClonazePAM 0.5 MG Tab PO SCH (18:00)
[2022-03-14] MEDS ORDERED: Ferrous Sulfate 325 MG Tab PO SCH (20:00)
[2022-03-15] MEDS ORDERED: methylPREDNISolone Sodium Succinate 125 MG/2 ML SDV IVPUSH SCH (08:00)
[2022-03-15] MEDS ORDERED: buPROPion 150 MG Tab.ER PO SCH (09:00)
[2022-03-15] MEDS ORDERED: Omeprazole 20 MG Cap.CR PO SCH (09:00)
[2022-03-15] MEDS ORDERED: Levothyroxine 50 MCG Tab PO SCH (09:00)
[2022-03-15] MEDS ORDERED: Folic Acid 1 MG Tab PO SCH (09:00)
[2022-03-15] MEDS ORDERED: Furosemide 20 MG Tab PO SCH (09:00)
[2022-03-15] MEDS ORDERED: Metoprolol Succinate 25 MG Tab.ER PO SCH (09:00)
[2022-03-15] MEDS ORDERED: ClonazePAM 0.5 MG Tab PO SCH (09:00)
== END 2022-03-14 15:27 ==
LOC: LL.ED 04:27 → LL.MS 06:34
PROVIDERS: ADMIT Physician Assistant; ATTEND Physician Assistant
DX: J43.9 Emphysema, unspecified (principal); J44.1 Chronic obstructive pulmonary disease with (acute) exacerbation; I48.91 Unspecified atrial fibrillation; E78.00 Pure hypercholesterolemia, unspecified; N40.1 Benign prostatic hyperplasia with lower urinary tract symptoms; R33.8 Other retention of urine; E03.9 Hypothyroidism, unspecified; F41.9 Anxiety disorder, unspecified; F32.A Depression, unspecified; E44.0 Moderate protein-calorie malnutrition; I11.0 Hypertensive heart disease with heart failure; I50.9 Heart failure, unspecified; I71.4 Abdominal aortic aneurysm, without rupture; F41.1 Generalized anxiety disorder; F33.9 Major depressive disorder, recurrent, unspecified; Z20.822 Contact with and (suspected) exposure to COVID-19; Z99.81 Dependence on supplemental oxygen; Z87.891 Personal history of nicotine dependence; Z79.899 Other long term (current) drug therapy; Z98.890 Other specified postprocedural states; Z79.890 Hormone replacement therapy
CPT/HCPCS: 0241U; 36415; 71046; 71275; 80053; 82803; 83605; 83735; 83880; 84484; 85025; 85379; 93005; 93010; 94640; 96374; 96375; 99236; 99285-25; A9270-GY; J0456; J0696; J1940; J2930; J7030; J7040; J7050; J7620-GY; Q9967

== ENCOUNTER 2022-08-21 23:12 | Inpatient (IN) | payer OTHER ==
[2022-08-21] MEDS ORDERED: Albuterol/Ipratropium 3.0-0.5 MG/3 ML Neb Soln NEB ONE (23:13)
[2022-08-21 23:50] LABS: CHLORIDE,CL 103 mmol/L (98-107); ESTIMATED GFR 63 mL/min (>=60); SODIUM,NA 141 mmol/L (136-145)
[2022-08-22 00:13] LABS: CORONAVIRUS COVID-19 NAA NEGATIVE (NEGATIVE); RESPIRATORY SYNCYTIAL VIR NAA NEGATIVE (NEGATIVE)
[2022-08-22] MEDS ORDERED: Ondansetron 4 MG/2 ML SDV IVPUSH PRN (01:27)
[2022-08-22] MEDS ORDERED: Sodium Chloride 0.9% 500 ML IV SCH (01:30)
[2022-08-22] MEDS ORDERED: Lidocaine 2% HCl 11 ML Jelly Filled Syringe TOP PRN (01:56)
[2022-08-22] MEDS: Acetaminophen 325 MG Tab PO PRN ×3 (02:42→21:58)
[2022-08-22] MEDS ORDERED: Albuterol 6.7 GM Inhaler INH PRN (07:28)
[2022-08-22] MEDS ORDERED: Magnesium Hydroxide 400 MG/5 ML Susp 30 ML Cup PO PRN (07:47)
[2022-08-22] MEDS ORDERED: traMADol 50 MG Tab PO PRN (07:47)
[2022-08-22] MEDS ORDERED: Melatonin 3 MG Tab PO PRN (07:47)
[2022-08-22] MEDS ORDERED: Loperamide 2 MG Tab PO PRN (07:47)
[2022-08-22] MEDS ORDERED: Calcium Carbonate 750 MG Tab.Chew PO PRN (07:47)
[2022-08-22] MEDS: Furosemide 20 MG Tab PO SCH (09:13)
[2022-08-22] MEDS: buPROPion 150 MG Tab.ER PO SCH (09:13)
[2022-08-22] MEDS: Omeprazole 20 MG Cap.CR PO SCH (09:13)
[2022-08-22] MEDS: busPIRone 15 MG Tab PO SCH ×3 (09:13→19:34)
[2022-08-22] MEDS: Apixaban 5 MG Tab PO SCH ×2 (09:13→17:12)
[2022-08-22] MEDS: Levothyroxine 50 MCG Tab PO SCH (09:13)
[2022-08-22] MEDS: Folic Acid 1 MG Tab PO SCH (09:14)
[2022-08-22] MEDS: ClonazePAM 0.5 MG Tab PO SCH ×2 (09:14→17:12)
[2022-08-22] MEDS: Ferrous Sulfate 325 MG Tab PO SCH ×2 (09:14→19:34)
[2022-08-22] MEDS: Metoprolol Succinate 25 MG Tab.ER PO SCH (09:15)
[2022-08-22] MEDS: [UNRECOGNIZED DRUG - OTHER] INH SCH ×2 (12:54→19:34)
[2022-08-22] MEDS: BUDESONIDE INH SCH ×2 (12:54→19:34)
[2022-08-22] MEDS: TIOTROPIUM 18 MCG INH SCH (12:54)
[2022-08-22 13:21] LABS: ANION GAP 8.3 meq/L (7-15)
[2022-08-22] MEDS ORDERED: Iopamidol 612 MG/ML 100 ML Bottle IVPUSH ONE (14:00)
[2022-08-22] MEDS: cefTRIAXone 2 GM in Sodium Chloride 0.9% 100 ML IV SCH (17:12)
[2022-08-22] MEDS: Doxycycline Monohydrate 100 MG Cap PO SCH (17:12)
[2022-08-22] MEDS: guaiFENesin/Dextromethorphan 100-10 MG/5 ML Soln 10 ML Cup PO PRN (18:25)
[2022-08-22 20:48] LABS: ANION GAP 8.8 meq/L (7-15)
[2022-08-23] MEDS: Metoprolol Succinate 25 MG Tab.ER PO SCH (08:35)
[2022-08-23] MEDS: Apixaban 5 MG Tab PO SCH ×2 (08:35→17:23)
[2022-08-23] MEDS: buPROPion 150 MG Tab.ER PO SCH (08:35)
[2022-08-23] MEDS: Doxycycline Monohydrate 100 MG Cap PO SCH ×2 (08:35→17:23)
[2022-08-23] MEDS: Omeprazole 20 MG Cap.CR PO SCH (08:35)
[2022-08-23] MEDS: busPIRone 15 MG Tab PO SCH ×3 (08:35→19:15)
[2022-08-23] MEDS: Levothyroxine 50 MCG Tab PO SCH (08:36)
[2022-08-23] MEDS: Folic Acid 1 MG Tab PO SCH (08:36)
[2022-08-23] MEDS: ClonazePAM 0.5 MG Tab PO SCH ×2 (08:39→19:16)
[2022-08-23] MEDS: TIOTROPIUM 18 MCG INH SCH (08:42)
[2022-08-23] MEDS: BUDESONIDE INH SCH ×2 (08:42→19:15)
[2022-08-23] MEDS: Furosemide 20 MG Tab PO SCH (08:42)
[2022-08-23] MEDS: [UNRECOGNIZED DRUG - OTHER] INH SCH ×2 (08:42→19:15)
[2022-08-23] MEDS: Acetaminophen 325 MG Tab PO PRN ×2 (11:55→21:53)
[2022-08-23] MEDS: Ferrous Sulfate 325 MG Tab PO SCH (11:55)
[2022-08-23] MEDS ORDERED: Albuterol/Ipratropium 3.0-0.5 MG/3 ML Neb Soln NEB ONE (13:41)
[2022-08-23] MEDS ORDERED: Albuterol/Ipratropium 3.0-0.5 MG/3 ML Neb Soln NEB PRN (14:10)
[2022-08-23] MEDS ORDERED: Sodium Chloride 0.9% 500 ML IV SCH (14:15)
[2022-08-23] MEDS: Bisacodyl 5 MG Tab PO PRN (15:13)
[2022-08-23] MEDS: cefTRIAXone 2 GM in Sodium Chloride 0.9% 100 ML IV SCH (16:48)
[2022-08-23 18:46] LABS: PCO2 ARTERIAL,POC 35 mmHg (35-48)
[2022-08-23] MEDS: Sodium Chloride 0.9% 10 ML Syringe FLUSH PRN (19:16)
[2022-08-23] MEDS: guaiFENesin/Dextromethorphan 100-10 MG/5 ML Soln 10 ML Cup PO PRN (22:10)
[2022-08-24] MEDS: Furosemide 20 MG Tab PO SCH (08:51)
[2022-08-24] MEDS: Levothyroxine 50 MCG Tab PO SCH (08:51)
[2022-08-24] MEDS: Omeprazole 20 MG Cap.CR PO SCH (08:51)
[2022-08-24] MEDS: buPROPion 150 MG Tab.ER PO SCH (08:52)
[2022-08-24] MEDS: Folic Acid 1 MG Tab PO SCH (08:52)
[2022-08-24] MEDS: busPIRone 15 MG Tab PO SCH ×3 (08:52→19:45)
[2022-08-24] MEDS: [UNRECOGNIZED DRUG - OTHER] INH SCH ×2 (08:53→19:45)
[2022-08-24] MEDS: BUDESONIDE INH SCH ×2 (08:53→19:45)
[2022-08-24] MEDS: Doxycycline Monohydrate 100 MG Cap PO SCH ×2 (08:53→18:10)
[2022-08-24] MEDS: Metoprolol Succinate 25 MG Tab.ER PO SCH (08:53)
[2022-08-24] MEDS: Apixaban 5 MG Tab PO SCH ×2 (08:53→18:10)
[2022-08-24] MEDS: TIOTROPIUM 18 MCG INH SCH (08:53)
[2022-08-24] MEDS: ClonazePAM 0.5 MG Tab PO SCH ×2 (08:54→18:10)
[2022-08-24 09:48] LABS: ANION GAP 10.3 meq/L (7-15)
[2022-08-24] MEDS: Albuterol/Ipratropium 3.0-0.5 MG/3 ML Neb Soln NEB SCH ×3 (10:01→18:10)
[2022-08-24] MEDS: cefTRIAXone 2 GM in Sodium Chloride 0.9% 100 ML IV SCH (16:16)
[2022-08-24] MEDS: Acetaminophen 325 MG Tab PO PRN (18:45)
[2022-08-24] MEDS: Sodium Chloride 0.9% 10 ML Syringe FLUSH PRN (19:46)
[2022-08-24] MEDS: Bisacodyl 5 MG Tab PO PRN (19:57)
[2022-08-25] MEDS: Acetaminophen 325 MG Tab PO PRN ×2 (01:45→12:03)
[2022-08-25] MEDS: Albuterol/Ipratropium 3.0-0.5 MG/3 ML Neb Soln NEB SCH ×2 (08:45→12:05)
[2022-08-25] MEDS: Furosemide 20 MG Tab PO SCH (08:47)
[2022-08-25] MEDS: Metoprolol Succinate 25 MG Tab.ER PO SCH (08:47)
[2022-08-25] MEDS: ClonazePAM 0.5 MG Tab PO SCH (08:47)
[2022-08-25] MEDS: busPIRone 15 MG Tab PO SCH (08:48)
[2022-08-25] MEDS: Folic Acid 1 MG Tab PO SCH (08:48)
[2022-08-25] MEDS: Levothyroxine 50 MCG Tab PO SCH (08:48)
[2022-08-25] MEDS: Apixaban 5 MG Tab PO SCH (08:49)
[2022-08-25] MEDS: Omeprazole 20 MG Cap.CR PO SCH (08:49)
[2022-08-25] MEDS: Doxycycline Monohydrate 100 MG Cap PO SCH (08:49)
[2022-08-25] MEDS: buPROPion 150 MG Tab.ER PO SCH (08:49)
[2022-08-25] MEDS: [UNRECOGNIZED DRUG - OTHER] INH SCH (09:31)
[2022-08-25] MEDS: BUDESONIDE INH SCH (09:31)
[2022-08-25] MEDS ORDERED: methylPREDNISolone Sodium Succinate 40 MG/1 ML SDV IVPUSH ONE (09:34)
[2022-08-25] MEDS ORDERED: Lactulose Soln 10 GM/15 ML 30 ML UD Cup PO ONE (09:35)
[2022-08-25 09:53] LABS: ANION GAP 10.1 meq/L (7-15)
[2022-08-25] MEDS ORDERED: Iopamidol 755 Mg/ML 100 ML Bottle ONE (10:06)
[2022-08-25] MEDS ORDERED: Iopamidol 755 Mg/ML 100 ML Bottle IVPUSH ONE (10:59)
[2022-08-25] MEDS: Sodium Chloride 0.9% 10 ML Syringe FLUSH PRN (11:24)
== END 2022-08-25 14:33 | DRG 190 ==
LOC: LL.ED 23:12 → LL.MS 08-22 00:30 → OBSVTOIN 08-23 16:32
PROVIDERS: ADMIT Physician Assistant; ATTEND Emergency Medicine
DX: J44.0 Chronic obstructive pulmonary disease with (acute) lower respiratory infection (principal); J18.9 Pneumonia, unspecified organism; C64.2 Malignant neoplasm of left kidney, except renal pelvis; I47.20 Ventricular tachycardia, unspecified; J44.1 Chronic obstructive pulmonary disease with (acute) exacerbation; Z20.822 Contact with and (suspected) exposure to COVID-19; I71.40 Abdominal aortic aneurysm, without rupture, unspecified; H54.7 Unspecified visual loss; I48.91 Unspecified atrial fibrillation; E78.00 Pure hypercholesterolemia, unspecified; I10 Essential (primary) hypertension; K59.09 Other constipation; K21.9 Gastro-esophageal reflux disease without esophagitis; N40.1 Benign prostatic hyperplasia with lower urinary tract symptoms; R33.9 Retention of urine, unspecified; F41.9 Anxiety disorder, unspecified; F32.A Depression, unspecified; E03.9 Hypothyroidism, unspecified; Z96.642 Presence of left artificial hip joint; D64.9 Anemia, unspecified; Z79.890 Hormone replacement therapy; Z79.01 Long term (current) use of anticoagulants; Z79.899 Other long term (current) drug therapy; Z79.52 Long term (current) use of systemic steroids; Z87.891 Personal history of nicotine dependence
CPT/HCPCS: 0241U; 36415; 36600; 71045; 71046; 71250; 71275; 74018; 74019; 74177; 80048; 80053; 81001; 81003; 82150; 82803; 83605; 83690; 83880; 84484; 85025; 85379; 87086; 93005; 94640; 96361; 96365; 96375; 97110-GP; 97162-GP; 99285; A9270-GY; G0378; J0696; J2405; J2920; J3490; J7040; J7620-GY; Q9967; U0002

== ENCOUNTER 2022-10-03 14:37 | Emergency (ER) | payer OTHER, MEDICAID ==
[2022-10-03 15:29] LABS: CHLORIDE,CL 106 mmol/L (98-107); SODIUM,NA 142 mmol/L (136-145)
[2022-10-03 15:31] LABS: ESTIMATED GFR 59 mL/min (>=60)
== END 2022-10-03 16:55 ==
LOC: LL.ED 14:37
DX: T83.511A Infection and inflammatory reaction due to indwelling urethral catheter, initial encounter (principal); N39.0 Urinary tract infection, site not specified; R33.9 Retention of urine, unspecified; I48.91 Unspecified atrial fibrillation; E78.00 Pure hypercholesterolemia, unspecified; I10 Essential (primary) hypertension; K21.9 Gastro-esophageal reflux disease without esophagitis; E03.9 Hypothyroidism, unspecified; N40.0 Benign prostatic hyperplasia without lower urinary tract symptoms; Z79.899 Other long term (current) drug therapy; Z79.01 Long term (current) use of anticoagulants
CPT/HCPCS: 36415; 51702; 80053; 81001; 85025; 87086; 87088; 87186; 99284

== ENCOUNTER 2023-11-05 19:16 | Emergency (ER) | payer MEDICAID ==
[2023-11-05 19:34] LABS: BASOPHILS ABSOLUTE AUTO 0.03 K/uL (0.00-0.20); BASOPHILS PERCENT AUTO 0.5 % (0.0-2.0); EOSINOPHILS ABSOLUTE AUTO 0.14 K/uL (0.00-0.50); EOSINOPHILS PERCENT AUTO 2.2 % (0.0-5.0); HEMOGLOBIN 12.1 g/dL (13.1-16.8); LYMPHOCYTES ABSOLUTE AUTO 1.09 K/uL (0.50-3.50); LYMPHOCYTES PERCENT AUTO 17.3 % (10.0-50.0); MEAN CORPUSCULAR VOLUME 103.2 fL (84.0-98.0); MONOCYTES ABSOLUTE AUTO 0.63 K/uL (0.00-1.00); PLATELET COUNT,PLT 285 K/uL (150-350); RED BLOOD CELL COUNT 3.78 M/uL (4.33-5.41); WHITE BLOOD CELL COUNT,WBC 6.3 K/uL (4.0-10.2)
[2023-11-05 19:49] LABS: ALANINE AMINOTRANSFERASE,ALT 15 U/L (12-78); ALBUMIN 3.1 g/dL (3.4-5.0); ALKALINE PHOSPHATASE 126 IU/L (46-116); ANION GAP 7.3 meq/L (7-15); ASPARTATE AMNIOTRANSFERASE,AST 12 U/L (15-37); BILIRUBIN TOTAL 0.2 mg/dL (0.2-1.0); BLOOD UREA NITROGEN,BUN 21 mg/dL (7-18); CALCIUM 8.6 mg/dL (8.5-10.1); CARBON DIOXIDE,CO2 28.7 mmol/L (21.0-32.0); CHLORIDE,CL 105 mmol/L (98-107); CREATININE 1.23 mg/dL (0.51-1.17); ETHANOL BLOOD MEDICAL 0.002 g/dL (0.000-0.080); GLUCOSE RANDOM 110 mg/dL (70-99); POTASSIUM,K 3.8 mmol/L (3.5-5.1); PROTEIN TOTAL,TP 6.1 g/dL (6.4-8.2); SODIUM,NA 141 mmol/L (136-145)
[2023-11-05 19:50] LABS: ESTIMATED GFR 60 mL/min (>=60)
[2023-11-05 19:51] LABS: APPEARANCE,URINE CLOUDY; BILIRUBIN,URINE SMALL (NEGATIVE); COLOR,URINE YELLOW; GLUCOSE,URINE NEGATIVE (NEGATIVE); KETONES,URINE TRACE mg/dL (NEGATIVE); LEUKOCYTE ESTERASE,URINE TRACE (NEGATIVE); NITRITE,URINE POSITIVE (NEGATIVE); OCCULT BLOOD,URINE MODERATE (NEGATIVE); PH,URINE 5.5 (5.0-9.0); PROTEIN,URINE 100 mg/dL (NEGATIVE)
[2023-11-05 19:58] LABS: BACTERIA,URINE MANY /HPF (NONE TO FEW); WBC,URINE 30-40 /HPF
[2023-11-05 20:17] LABS: PROTHROMBIN TIME 10.4 SEC (9.0-11.1)
[2023-11-05] MEDS: cefTRIAXone 2 GM Vial IVPUSH SCH (20:54)
[2023-11-05] MEDS: Sodium Chloride 0.9% 10 ML Syringe FLUSH PRN (20:57)
== END 2023-11-05 22:10 | disposition home or self-care (01) ==
LOC: LL.ED 19:16
DX: N30.00 Acute cystitis without hematuria (principal); I10 Essential (primary) hypertension; J44.9 Chronic obstructive pulmonary disease, unspecified; K21.9 Gastro-esophageal reflux disease without esophagitis; E78.00 Pure hypercholesterolemia, unspecified; E03.9 Hypothyroidism, unspecified; Z79.899 Other long term (current) drug therapy; W18.30XA Fall on same level, unspecified, initial encounter
CPT/HCPCS: 36415; 70450; 71045; 80053; 80307; 81001; 83605; 84484; 85025; 85610; 87086; 87088; 87186; 93005; 93010; 96374; 99284; 99284-25; J0696; J3490

== ENCOUNTER 2025-01-16 17:41 | Emergency (ER) | payer MEDICAID ==
[2025-01-16 17:51] LABS: BASOPHILS ABSOLUTE AUTO 0.02 K/uL (0.00-0.20); BASOPHILS PERCENT AUTO 0.3 % (0.0-2.0); EOSINOPHILS ABSOLUTE AUTO 0.11 K/uL (0.00-0.50); EOSINOPHILS PERCENT AUTO 1.4 % (0.0-5.0); HEMATOCRIT 38.4 % (39.0-49.0); IMMATURE GRAN ABSOLUTE AUTO 0.01 10^3/uL (0.00-0.04); IMMATURE GRAN PERCENT AUTO 0.1 % (0.0-0.4); LYMPHOCYTES ABSOLUTE AUTO 1.05 K/uL (0.50-3.50); LYMPHOCYTES PERCENT AUTO 13.6 % (10.0-50.0); MEAN CORPUSCULAR HEMOGLOBIN 31.7 pg (28.2-33.3); MEAN CORPUSCULAR HGB CONC 31.3 g/dL (31.7-36.0); MEAN CORPUSCULAR VOLUME 101.3 fL (84.0-98.0); MONOCYTES ABSOLUTE AUTO 0.79 K/uL (0.00-1.00); MONOCYTES PERCENT AUTO 10.2 % (2.0-14.0); NEUTROPHILS ABSOLUTE AUTO 5.74 K/uL (1.40-7.00); NEUTROPHILS PERCENT AUTO 74.4 % (45.0-80.0); PLATELET COUNT,PLT 255 K/uL (150-350); RED BLOOD CELL COUNT 3.79 M/uL (4.33-5.41); WHITE BLOOD CELL COUNT,WBC 7.7 K/uL (4.0-10.2)
[2025-01-16] MEDS: fentaNYL 50 MCG/ML SDV IVPUSH ONE ×3 (18:04→20:47)
[2025-01-16 18:06] LABS: BILIRUBIN TOTAL 0.3 mg/dL (0.2-1.0); PROTEIN TOTAL,TP 5.9 g/dL (6.4-8.2)
[2025-01-16 18:20] LABS: CALCIUM 8.2 mg/dL (8.5-10.1); CARBON DIOXIDE,CO2 29.9 mmol/L (21.0-32.0); CREATININE 1.11 mg/dL (0.51-1.17); EST CRCL DRUG DOSING (CG) 47.7 mL/min
[2025-01-16] MEDS ORDERED: Naloxone 0.4 MG/ML SDV IVPUSH PRN (18:38)
[2025-01-16 19:19] LABS: ANION GAP 11.1 meq/L (7-15)
[2025-01-16] MEDS: oxyCODONE 5 MG Tab PO ONE (20:05)
[2025-01-16] MEDS: Orphenadrine 60 MG/2 ML Inj IV ONE (20:47)
== END 2025-01-16 21:05 ==
LOC: LL.ED 17:41
DX: S72.141A Displaced intertrochanteric fracture of right femur, initial encounter for closed fracture (principal); I48.91 Unspecified atrial fibrillation; E78.00 Pure hypercholesterolemia, unspecified; I10 Essential (primary) hypertension; J44.9 Chronic obstructive pulmonary disease, unspecified; E03.9 Hypothyroidism, unspecified; Z79.890 Hormone replacement therapy; Z79.01 Long term (current) use of anticoagulants; Z79.899 Other long term (current) drug therapy; Z79.51 Long term (current) use of inhaled steroids; W18.39XA Other fall on same level, initial encounter; Y93.89 Activity, other specified
CPT/HCPCS: 36415; 74176; 80053; 85025; 96374; 96375; 96376; 99284-25; A9270-GY; J2360; J3010

== ENCOUNTER 2025-02-02 21:41 | Emergency (ER) | payer OTHER ==
[2025-02-02] MEDS: Sodium Chloride 0.9% 1,000 ML IV ONE (22:00)
[2025-02-02] MEDS ORDERED: Sodium Chloride 0.9% 10 ML Syringe FLUSH PRN (22:12)
[2025-02-02 22:18] LABS: BASOPHILS ABSOLUTE AUTO 0.02 K/uL (0.00-0.20); BASOPHILS PERCENT AUTO 0.2 % (0.0-2.0); EOSINOPHILS ABSOLUTE AUTO 0.01 K/uL (0.00-0.50); EOSINOPHILS PERCENT AUTO 0.1 % (0.0-5.0); HEMATOCRIT 28.4 % (39.0-49.0); HEMOGLOBIN 9.2 g/dL (13.1-16.8); IMMATURE GRAN ABSOLUTE AUTO 0.05 10^3/uL (0.00-0.04); IMMATURE GRAN PERCENT AUTO 0.4 % (0.0-0.4); LYMPHOCYTES ABSOLUTE AUTO 0.72 K/uL (0.50-3.50); LYMPHOCYTES PERCENT AUTO 5.6 % (10.0-50.0); MEAN CORPUSCULAR HEMOGLOBIN 31.9 pg (28.2-33.3); MEAN CORPUSCULAR HGB CONC 32.4 g/dL (31.7-36.0); MEAN CORPUSCULAR VOLUME 98.6 fL (84.0-98.0); MONOCYTES ABSOLUTE AUTO 1.05 K/uL (0.00-1.00); MONOCYTES PERCENT AUTO 8.1 % (2.0-14.0); NEUTROPHILS PERCENT AUTO 85.6 % (45.0-80.0); PLATELET COUNT,PLT 426 K/uL (150-350); RED BLOOD CELL COUNT 2.88 M/uL (4.33-5.41); RED CELL DISTRIBUTION WIDTH 13.8 % (11.2-14.1)
[2025-02-02 22:35] LABS: INR 1.5 (0.9-1.1)
[2025-02-02 22:39] LABS: ALANINE AMINOTRANSFERASE,ALT 16 U/L (12-78); ALBUMIN 2.4 g/dL (3.4-5.0); ALKALINE PHOSPHATASE 135 IU/L (46-116); ANION GAP 10.1 meq/L (7-15); ASPARTATE AMNIOTRANSFERASE,AST 17 U/L (15-37); BILIRUBIN TOTAL 0.4 mg/dL (0.2-1.0); BLOOD UREA NITROGEN,BUN 34 mg/dL (7-18); CALCIUM 8.4 mg/dL (8.5-10.1); CARBON DIOXIDE,CO2 24.9 mmol/L (21.0-32.0); CHLORIDE,CL 102 mmol/L (98-107); CREATININE 1.07 mg/dL (0.51-1.17); GLUCOSE RANDOM 110 mg/dL (70-99); MAGNESIUM 2.1 mg/dL (1.8-2.4); PROTEIN TOTAL,TP 6.1 g/dL (6.4-8.2); SODIUM,NA 137 mmol/L (136-145)
[2025-02-02 22:51] LABS: ESTIMATED GFR 71 mL/min (>=60)
[2025-02-02 23:01] LABS: APPEARANCE,URINE SLIGHTLY CLOUDY; BILIRUBIN,URINE SMALL (NEGATIVE); COLOR,URINE YELLOW; GLUCOSE,URINE NEGATIVE (NEGATIVE); KETONES,URINE TRACE mg/dL (NEGATIVE); LEUKOCYTE ESTERASE,URINE TRACE (NEGATIVE); NITRITE,URINE NEGATIVE (NEGATIVE); OCCULT BLOOD,URINE NEGATIVE (NEGATIVE); PH,URINE 5.5 (5.0-9.0); PROTEIN,URINE 100 mg/dL (NEGATIVE)
[2025-02-02] MEDS: Cefepime 2 GM Vial IVPUSH SCH (23:01)
[2025-02-02 23:07] LABS: LACTIC ACID 1.1 mmol/L (0.4-2.0)
[2025-02-03] MEDS: metroNIDAZOLE/Normal Saline 500 MG in Premix Bag 1 BAG IV SCH (00:15)
== END 2025-02-03 02:05 ==
LOC: LL.ED 21:41
DX: J69.0 Pneumonitis due to inhalation of food and vomit (principal); R41.82 Altered mental status, unspecified; I10 Essential (primary) hypertension; J44.9 Chronic obstructive pulmonary disease, unspecified; K21.9 Gastro-esophageal reflux disease without esophagitis; E03.9 Hypothyroidism, unspecified; I48.91 Unspecified atrial fibrillation; E78.00 Pure hypercholesterolemia, unspecified; F17.210 Nicotine dependence, cigarettes, uncomplicated; Z79.899 Other long term (current) drug therapy; Z79.01 Long term (current) use of anticoagulants
CPT/HCPCS: 36415; 70450; 71250; 80053; 81003; 83605; 83735; 85025; 85610; 87040; 87086; 87088; 87186; 96361; 96365; 96375; 99284; 99285-25; J0692; J1836; J7030

== ENCOUNTER 2025-03-02 13:47 | Emergency (ER) | payer OTHER ==
[2025-03-02 14:16] LABS: BASOPHILS ABSOLUTE AUTO 0.02 K/uL (0.00-0.20); BASOPHILS PERCENT AUTO 0.2 % (0.0-2.0); EOSINOPHILS ABSOLUTE AUTO 0.11 K/uL (0.00-0.50); EOSINOPHILS PERCENT AUTO 1.1 % (0.0-5.0); IMMATURE GRAN ABSOLUTE AUTO 0.04 10^3/uL (0.00-0.04); IMMATURE GRAN PERCENT AUTO 0.4 % (0.0-0.4); LYMPHOCYTES ABSOLUTE AUTO 1.16 K/uL (0.50-3.50); LYMPHOCYTES PERCENT AUTO 11.3 % (10.0-50.0); MONOCYTES ABSOLUTE AUTO 1.08 K/uL (0.00-1.00); MONOCYTES PERCENT AUTO 10.5 % (2.0-14.0); NEUTROPHILS ABSOLUTE AUTO 7.83 K/uL (1.40-7.00); NEUTROPHILS PERCENT AUTO 76.5 % (45.0-80.0); PLATELET COUNT,PLT 318 K/uL (150-350); RED BLOOD CELL COUNT 3.87 M/uL (4.33-5.41); RED CELL DISTRIBUTION WIDTH 15.2 % (11.2-14.1); WHITE BLOOD CELL COUNT,WBC 10.2 K/uL (4.0-10.2)
[2025-03-02 14:47] LABS: ALANINE AMINOTRANSFERASE,ALT 17.0 U/L (12-78); ASPARTATE AMNIOTRANSFERASE,AST 14.0 U/L (15-37); BILIRUBIN TOTAL 0.4 mg/dL (0.2-1.0); BLOOD UREA NITROGEN,BUN 19.0 mg/dL (7-18); CARBON DIOXIDE,CO2 27.9 mmol/L (21.0-32.0); CHLORIDE,CL 105.0 mmol/L (98-107); CREATININE 0.99 mg/dL (0.51-1.17); EST CRCL DRUG DOSING (CG) 48.91 mL/min; GLUCOSE RANDOM 90.0 mg/dL (70-99); POTASSIUM,K 4.2 mmol/L (3.5-5.1); PRO B-TYPE NATRIUR PEPT,BNPPRO 886.0 pg/mL (0-125); PROTEIN TOTAL,TP 6.4 g/dL (6.4-8.2); SODIUM,NA 139.0 mmol/L (136-145)
[2025-03-02 14:48] LABS: ESTIMATED GFR 77.0 mL/min (>=60)
== END 2025-03-02 16:45 ==
LOC: LL.ED 13:47
DX: J18.9 Pneumonia, unspecified organism (principal); I48.91 Unspecified atrial fibrillation; E78.00 Pure hypercholesterolemia, unspecified; I10 Essential (primary) hypertension; J44.9 Chronic obstructive pulmonary disease, unspecified; E03.9 Hypothyroidism, unspecified; Z79.890 Hormone replacement therapy; Z79.01 Long term (current) use of anticoagulants; Z79.899 Other long term (current) drug therapy
CPT/HCPCS: 36415; 71046; 80053; 83880; 85025; 99284; 99285

== ENCOUNTER 2025-03-03 15:17 | Emergency (ER) | payer OTHER ==
[2025-03-03 15:34] LABS: BASOPHILS ABSOLUTE AUTO 0.03 K/uL (0.00-0.20); BASOPHILS PERCENT AUTO 0.2 % (0.0-2.0); EOSINOPHILS ABSOLUTE AUTO 0.01 K/uL (0.00-0.50); EOSINOPHILS PERCENT AUTO 0.1 % (0.0-5.0); IMMATURE GRAN ABSOLUTE AUTO 0.03 10^3/uL (0.00-0.04); IMMATURE GRAN PERCENT AUTO 0.2 % (0.0-0.4); LYMPHOCYTES ABSOLUTE AUTO 0.78 K/uL (0.50-3.50); LYMPHOCYTES PERCENT AUTO 5.9 % (10.0-50.0); MONOCYTES ABSOLUTE AUTO 1.53 K/uL (0.00-1.00); MONOCYTES PERCENT AUTO 11.5 % (2.0-14.0); NEUTROPHILS ABSOLUTE AUTO 10.94 K/uL (1.40-7.00); NEUTROPHILS PERCENT AUTO 82.1 % (45.0-80.0); PLATELET COUNT,PLT 269 K/uL (150-350); RED BLOOD CELL COUNT 3.55 M/uL (4.33-5.41); RED CELL DISTRIBUTION WIDTH 15.1 % (11.2-14.1); WHITE BLOOD CELL COUNT,WBC 13.3 K/uL (4.0-10.2)
[2025-03-03 16:00] LABS: LACTIC ACID 1.1 mmol/L (0.4-2.0)
[2025-03-03 16:01] LABS: ALANINE AMINOTRANSFERASE,ALT 15 U/L (12-78); ASPARTATE AMNIOTRANSFERASE,AST 9 U/L (15-37); BILIRUBIN TOTAL 0.5 mg/dL (0.2-1.0); BLOOD UREA NITROGEN,BUN 19 mg/dL (7-18); CARBON DIOXIDE,CO2 26.5 mmol/L (21.0-32.0); CHLORIDE,CL 102 mmol/L (98-107); CREATININE 0.95 mg/dL (0.51-1.17); GLUCOSE RANDOM 106 mg/dL (70-99); POTASSIUM,K 4.0 mmol/L (3.5-5.1); PRO B-TYPE NATRIUR PEPT,BNPPRO 2086 pg/mL (0-125); PROTEIN TOTAL,TP 5.8 g/dL (6.4-8.2); SODIUM,NA 136 mmol/L (136-145)
[2025-03-03 16:02] LABS: ESTIMATED GFR 81 mL/min (>=60)
== END 2025-03-03 17:55 ==
LOC: LL.ED 15:17
DX: S06.5XAA Traumatic subdural hemorrhage with loss of consciousness status unknown, initial encounter (principal); S00.83XA Contusion of other part of head, initial encounter; J18.9 Pneumonia, unspecified organism; I10 Essential (primary) hypertension; I48.91 Unspecified atrial fibrillation; E03.9 Hypothyroidism, unspecified; E78.00 Pure hypercholesterolemia, unspecified; K21.9 Gastro-esophageal reflux disease without esophagitis; J44.9 Chronic obstructive pulmonary disease, unspecified; Z79.899 Other long term (current) drug therapy; Z79.890 Hormone replacement therapy; Z79.01 Long term (current) use of anticoagulants; Z79.51 Long term (current) use of inhaled steroids; W19.XXXA Unspecified fall, initial encounter
CPT/HCPCS: 36415; 70450; 71045; 72125; 80053; 83605; 83735; 83880; 85025; 96365; 96375; 99284; 99285-25; J0456; J0696; J7030; J7050

== ENCOUNTER 2025-04-24 16:32 | Emergency (ER) | payer OTHER | END 2025-04-24 18:55 | LOC: LL.ED 16:32 | DX: Z98.890 Other specified postprocedural states (principal); Z87.81 Personal history of (healed) traumatic fracture; I10 Essential (primary) hypertension; K21.9 Gastro-esophageal reflux disease without esophagitis; E78.00 Pure hypercholesterolemia, unspecified; E03.9 Hypothyroidism, unspecified; Z79.890 Hormone replacement therapy; Z79.899 Other long term (current) drug therapy | CPT/HCPCS: 73502; 99284; A9270 ==

== ENCOUNTER 2025-07-24 19:46 | Emergency (ER) | payer OTHER ==
[2025-07-24] MEDS ORDERED: Sodium Chloride 0.9% 10 ML Syringe FLUSH PRN (19:54)
[2025-07-24 20:10] LABS: BASOPHILS ABSOLUTE AUTO 0.03 K/uL (0.00-0.20); BASOPHILS PERCENT AUTO 0.2 % (0.0-2.0); EOSINOPHILS ABSOLUTE AUTO 0.19 K/uL (0.00-0.50); EOSINOPHILS PERCENT AUTO 1.1 % (0.0-5.0); IMMATURE GRAN ABSOLUTE AUTO 0.13 10^3/uL (0.00-0.04); IMMATURE GRAN PERCENT AUTO 0.7 % (0.0-0.4); LYMPHOCYTES ABSOLUTE AUTO 3.85 K/uL (0.50-3.50); LYMPHOCYTES PERCENT AUTO 22.2 % (10.0-50.0); MONOCYTES ABSOLUTE AUTO 0.75 K/uL (0.00-1.00); MONOCYTES PERCENT AUTO 4.3 % (2.0-14.0); NEUTROPHILS ABSOLUTE AUTO 12.40 K/uL (1.40-7.00); NEUTROPHILS PERCENT AUTO 71.5 % (45.0-80.0); PLATELET COUNT,PLT 324 K/uL (150-350); RED BLOOD CELL COUNT 5.30 M/uL (4.33-5.41); RED CELL DISTRIBUTION WIDTH 15.3 % (11.2-14.1); WHITE BLOOD CELL COUNT,WBC 17.4 K/uL (4.0-10.2)
[2025-07-24] MEDS ORDERED: Naloxone 0.4 MG/ML SDV IVPUSH PRN (20:10)
[2025-07-24] MEDS: methylPREDNISolone Sodium Succinate 40 MG/1 ML SDV IVPUSH ONE (20:12)
[2025-07-24 20:39] LABS: INR 1.1 (0.9-1.1); PTT,PARTIAL THROMBOPLSTIN TIME 28.0 SEC (23.8-34.4)
[2025-07-24 20:43] LABS: ALANINE AMINOTRANSFERASE,ALT 33 U/L (12-78); ASPARTATE AMNIOTRANSFERASE,AST 24 U/L (15-37); BILIRUBIN TOTAL 0.3 mg/dL (0.2-1.0); BLOOD UREA NITROGEN,BUN 26 mg/dL (7-18); CARBON DIOXIDE,CO2 24.4 mmol/L (21.0-32.0); CHLORIDE,CL 107 mmol/L (98-107); CREATININE 1.13 mg/dL (0.51-1.17); GLUCOSE RANDOM 146 mg/dL (70-99); POTASSIUM,K 4.6 mmol/L (3.5-5.1); PROTEIN TOTAL,TP 7.5 g/dL (6.4-8.2); SODIUM,NA 143 mmol/L (136-145)
[2025-07-24 20:44] LABS: ESTIMATED GFR 66 mL/min (>=60)
[2025-07-24 21:02] LABS: PRO B-TYPE NATRIUR PEPT,BNPPRO 1073 pg/mL (0-125)
[2025-07-24 21:38] LABS: PH ARTERIAL,POC 7.3 pH (7.35-7.45)
[2025-07-24 21:39] LABS: HCO3 ARTERIAL,POC 21 mmol/L (22-26); O2 SATURATION ARTERIAL,POC 90.0 % (95-98); PCO2 ARTERIAL,POC 48 mmHg (35-48); PO2 ARTERIAL,POC 68 mmHg (83-108)
[2025-07-24 21:40] LABS: BASE EXCESS ARTERIAL,POC -6 mmol/L (-2-3); TCO2 ARTERIAL,POC 20.6 mmol/L (23-27)
[2025-07-24] MEDS: Iopamidol 755 Mg/ML 100 ML Bottle IVPUSH ONE (21:59)
[2025-07-24 22:26] LABS: CORONAVIRUS COVID-19 NAA NEGATIVE (NEGATIVE); INFLUENZA A NAA NEGATIVE (NEGATIVE); INFLUENZA B NAA NEGATIVE (NEGATIVE); RESPIRATORY SYNCYTIAL VIR NAA NEGATIVE (NEGATIVE)
[2025-07-24] MEDS: LORazepam 2 MG/ML SDV IVPUSH ONE (22:48)
== END 2025-07-25 00:58 ==
LOC: LL.ED 19:46
DX: J18.9 Pneumonia, unspecified organism (principal); I10 Essential (primary) hypertension; E78.00 Pure hypercholesterolemia, unspecified; I48.91 Unspecified atrial fibrillation; Z79.890 Hormone replacement therapy; Z79.899 Other long term (current) drug therapy
CPT/HCPCS: 36415; 36600; 70450; 70496; 70498; 71045; 80053; 82803; 83605; 83735; 83880; 84443; 84484; 85025; 85379; 85610; 85730; 87637; 93005; 93010; 96361; 96365; 96375; 99284; 99285-25; J0456; J0696; J1171; J1920; J2060; J2919; J7030; J7050; Q9967